=== PATIENT | male | born 1965 | race Hispanic/Latino ===

== ENCOUNTER 2016-09-14 17:51 | Emergency (ER) | payer MEDICAID ==
[2016-09-14 17:59] VITALS: BMI 22.4
[2016-09-14 18:04] VITALS: BP 106/78; PULSE 82; RESP 18; TEMP 97.2; O2SAT 97
--- NOTE | 2016-09-14 19:12 | ED PDOC ---
Arrival/HPI - General Chief Complaint: Back Pain Time Seen by Provider: 09/14/16 18:57 Historian: Patient - History of Present Illness Narrative History of Present Illness (Text): 09/14/16 19:08 Brandan Plascencia is a 51 year old male, who denies any past medical history, who presents to the ED complaining right sided back pain for 3 weeks. Patient states pain has been intermittent and started after he bent over trying to lunge after his dog. Patient states pain is worsened with movement. Patient denies any fever, chills, abdominal pain, cough, shortness of breath, nausea, vomiting, radiation of pain, urinary symptoms, or any other complaints. He took an OTC medicine without relief. Time/Duration: < month (3 weeks) Symptom Onset: Gradual Symptom Course: Intermittent Context: Home Past Medical History - Provider Review Nursing Documentation Reviewed: Yes - Infectious Disease Hx of Infectious Diseases: None - Tetanus Immunization Tetanus Immunization: Unknown - Past Medical History Past Medical History: No Previous - Psychiatric Hx Substance Use: No - Past Surgical History Past Surgical History: No Previous - Anesthesia Hx Anesthesia: No - Suicidal Assessment Feels Threatened In Home Enviroment: No Family/Social History - Physician Review Nursing Documentation Reviewed: Yes Family/Social History: No Known Family HX Smoking Status: Light Smoker < 10 Cigarettes Daily Hx Alcohol Use: No Hx Substance Use: No Allergies/Home Meds Allergies/Adverse Reactions: Allergies No Known Allergies Allergy (Verified 02/11/16 13:09) Review of Systems - Physician Review All systems were reviewed & negative as marked: Yes - Review of Systems Constitutional: Normal. absent: Fevers Respiratory: Normal. absent: SOB, Cough Cardiovascular: Normal Gastrointestinal: Normal. absent: Abdominal Pain, Diarrhea, Nausea, Vomiting Genitourinary Male: Normal. absent: Dysuria, Frequency, Hematuria, Urinary Output Changes Musculoskeletal: Back Pain (+right-sided back pain) Skin: Normal Physical Exam Vital Signs Reviewed: Yes Vital Signs Temp Pulse Resp BP Pulse Ox 09/14/16 17:51 97.2 F L 82 18 106/78 97 Temperature: Afebrile Blood Pressure: Normal Pulse: Regular Respiratory Rate: Normal Appearance: Positive for: Well-Appearing, Non-Toxic, Comfortable Pain Distress: None Mental Status: Positive for: Alert and Oriented X 3 - Systems Exam Head: Present: Atraumatic, Normocephalic Neck: Present: Normal Range of Motion Respiratory/Chest: Present: Clear to Auscultation, Good Air Exchange. No: Respiratory Distress, Accessory Muscle Use Cardiovascular: Present: Regular Rate and Rhythm, Normal S1, S2. No: Murmurs Abdomen: Present: Normal Bowel Sounds. No: Tenderness, Distention, Peritoneal Signs Back: Present: Paraspinal Tenderness (Tender to palpation in lateral right paralumbar area) Skin: Present: Warm, Dry, Normal Color. No: Rashes Psychiatric: Present: Alert, Oriented x 3, Normal Insight, Normal Concentration Medical Decision Making ED Course and Treatment: 09/14/16 19:08 Impression: 51 year old male complaining of intermittent right sided back pain for 3 weeks. Differential Diagnosis include but are not limited to: lumbar strain vs less likely renal stone vs pyelonephritis Plan: -- Urinalysis -- XR Lumbar Spine -- Toradol -- Tylenol -- Reassess and disposition Prior Visits: Notes and results from previous visits were reviewed. On 04/18/2016, pt was seen in the ED for right wrist pain. Pt was d/c home. Progress Notes: 09/14/16 19:42 Urine is negative with no UTI and much less likely renal colic with no RBCs and no urinary symptoms and history. Will treat for muscular strain/spasm. - Lab Interpretations Lab Results: Lab Results 09/14/16 19:10: Urine Color Light yellow, Urine Appearance Clear, Urine pH 6.0, Ur Specific [place] 1.010, Urine Protein Negative, Urine Glucose (UA) Negative, Urine Ketones Negative, Urine Blood Negative, Urine Nitrate Negative, Urine Bilirubin Negative, Urine Urobilinogen 0.2, Ur Leukocyte Esterase Negative - RAD Interpretation Radiology Orders: 09/14/16 19:06 LS SPINE WITH OBL > 18 YRS OLD [RAD] Stat - Medication Orders Current Medication Orders: Discontinued Medications Acetaminophen (Tylenol 325mg Tab) 975 mg PO STAT STA Stop: 09/14/16 19:09 Last Admin: 09/14/16 19:36 Dose: 975 MG MAR Pain/Vitals Document 09/14/16 19:36 RD (Rec: 09/14/16 19:36 RD [id number]) Pain Reassessment Is This A Pain ReAssessment? No Sleep Is patient sleeping during reassessment? No Presence of Pain Presence of Pain Yes Ketorolac Tromethamine (Toradol) 60 mg IM STAT STA Stop: 09/14/16 19:09 Last Admin: 09/14/16 19:36 Dose: 60 MG IM Administration Charges Document 09/14/16 19:36 RD (Rec: 09/14/16 19:36 RD [id number]) Injection Site MAR Injection Site Right Deltoid Charges for Administration # of IM Administrations 1 - Scribe Statement The provider has reviewed the documentation as recorded by the Adebayo Sarah Provider Attestation: All medical record entries made by the Scribgaby were at my direction and personally dictated by me. I have reviewed the chart and agree that the record accurately reflects my personal performance of the history, physical exam, medical decision making, and the department course for this patient. I have also personally directed, reviewed, and agree with the discharge instructions and disposition. Disposition/Present on Arrival - Present on Arrival Any Indicators Present on Arrival: No History of DVT/PE: No History of Uncontrolled Diabetes: No Urinary Catheter: No History of Decub. Ulcer: No History Surgical Site Infection Following: None - Disposition Have Diagnosis and Disposition been Completed?: Yes Diagnosis: Low back strain Disposition: HOME/ ROUTINE Disposition Time: 19:45 Patient Plan: Discharge Condition: GOOD Discharge Instructions (ExitCare): Acute Low Back Pain (ED) Additional Instructions: Avoid heavy lifting. Take the medications as prescribed. Follow up in the medical clinic. Return to the emergency department if any new concerning symptoms. Prescriptions: Baclofen [Lioresal] 1 cap PO TID PRN #20 tab PRN Reason: Pain, Moderate (4-7) Naproxen [Naprosyn] 500 mg PO BID PRN #30 tab PRN Reason: Pain Referrals: [facility] at [facility] [place] [Outside] - Follow up with primary
[2016-09-14 19:42] LABS: URINE APPEARANCE CLEAR (CLEAR); URINE BILIRUBIN NEGATIVE (NEGATIVE); URINE BLOOD NEGATIVE (NEGATIVE); URINE COLOR LIGHT YELLOW (YELLOW); URINE GLUCOSE (UA) NEGATIVE (NEGATIVE); URINE KETONE NEGATIVE (NEGATIVE); URINE LEUKOCYTE ESTERASE NEGATIVE Leu/uL (NEGATIVE); URINE PROTEIN NEGATIVE mg/dL (<30 mg/dL); URINE UROBILINOGEN 0.2 E.U./dL (<1 E.U./dL)
--- NOTE | 2016-09-15 09:31 | RAD ---
PROCEDURE: Radiographs of the Lumbar Spine. HISTORY: low back pain COMPARISON: No prior. FINDINGS: BONES: Normal alignment. No listhesis. No fracture. DISC SPACES: Unremarkable. OTHER FINDINGS: None. IMPRESSION: Unremarkable radiographs of the lumbar spine.
== END 2016-09-14 19:54 | disposition home or self-care (01) ==
LOC: ED 17:51
DX: S39.012A Strain of muscle, fascia and tendon of lower back, initial encounter (principal); X50.1XXA Overexertion from prolonged static or awkward postures, initial encounter; Y92.009 Unspecified place in unspecified non-institutional (private) residence as the place of occurrence of the external cause
CPT/HCPCS: 72110; 81003; 96372; 99282; J1885

== ENCOUNTER 2016-11-30 14:38 | Emergency (ER) | payer MEDICAID ==
[2016-11-30 14:52] VITALS: BMI 22.1
[2016-11-30 14:56] VITALS: BP 113/74; PULSE 65; RESP 19; TEMP 98.6; O2SAT 99
--- NOTE | 2016-11-30 15:18 | ED PDOC ---
Arrival/HPI - General Chief Complaint: Dental Pain Time Seen by Provider: 11/30/16 15:08 Historian: Patient - History of Present Illness Narrative History of Present Illness (Text): 11/30/16 15:21 51yr old male presents today with worsening upper gingival pain and swelling. pt states he has multiple teeth pulled by dentist and was sent home without any medications for pain. pt states he has been having increasing pain over the upper front gums. no fever/chills. states he took unknown pain mediation without improvement. no trismus or drooling. no headaches, dizziness. no other complaints. Time/Duration: > week (2 weeks) Symptom Onset: Gradual Symptom Course: Worsening Quality: Aching, Throbbing Severity Level: 7 Past Medical History - Provider Review Nursing Documentation Reviewed: Yes - Travel History Have you recently traveled outside [place] w/in the past 3 mons?: No - Infectious Disease Hx of Infectious Diseases: None - Tetanus Immunization Tetanus Immunization: Unknown - Past Medical History Past Medical History: No Previous - Psychiatric Hx Depression: No Hx Emotional Abuse: No Hx Physical Abuse: No Hx Substance Use: No - Past Surgical History Past Surgical History: No Previous - Surgical History Other/Comment: tooth extraction - Anesthesia Hx Anesthesia: Yes Hx Anesthesia Reactions: No - Suicidal Assessment Feels Threatened In Home Enviroment: No Family/Social History - Physician Review Nursing Documentation Reviewed: Yes Family/Social History: Unknown Family HX Smoking Status: Current Some Days Smoker Hx Alcohol Use: No Hx Substance Use: No Allergies/Home Meds Allergies/Adverse Reactions: Allergies No Known Allergies Allergy (Verified 11/30/16 14:52) Review of Systems - Review of Systems Constitutional: absent: Fatigue, Fevers ENT: Other (+ dental pain). absent: Sore Throat, Sinus Congestion Respiratory: absent: SOB, Cough Cardiovascular: absent: Chest Pain, Palpitations Gastrointestinal: absent: Abdominal Pain, Nausea, Vomiting Skin: absent: Rash, Pruritis Neurological: absent: Headache, Dizziness Physical Exam Vital Signs Reviewed: Yes Vital Signs Temp Pulse Resp BP Pulse Ox 11/30/16 14:54 98.6 F 65 19 113/74 99 Temperature: Afebrile Blood Pressure: Normal Pulse: Regular Respiratory Rate: Normal Appearance: Positive for: Well-Appearing, Non-Toxic, Comfortable Pain Distress: None Mental Status: Positive for: Alert and Oriented X 3 - Systems Exam Head: Present: Atraumatic Mouth: Present: Moist Mucous Membranes, Other (+ edema and tenderness to upper gingiva. no erythema. ). No: Drooling, Trismus, Normal Teeth Nose (Internal): Present: Normal Inspection Neck: Present: Normal Range of Motion Respiratory/Chest: Present: Clear to Auscultation, Good Air Exchange. No: Respiratory Distress, Accessory Muscle Use Cardiovascular: Present: Regular Rate and Rhythm, Normal S1, S2. No: Murmurs Neurological: Present: GCS=15 Skin: Present: Warm, Dry Psychiatric: Present: Alert, Oriented x 3 Medical Decision Making ED Course and Treatment: 11/30/16 15:24 Patient is nontoxic well-appearing in no distress with stable vital signs No trismus or drooling, moist mucous membranes Amoxicillin Toradol tramadol I advised follow-up with the dentist within the next 2 days. I advised immediate return is symptoms worsen persist or if new concerning symptoms develop Patient verbalizes understanding of discharge instructions and need for immediate followup. Impression: Toothache Motrin every 6 hours as needed for pain Amoxicillin 1 tablet 3 times daily x 10 days tramadol; 1 tablet every 6 hours as needed for moderate to severe pain; may cause drowsiness. Follow up with the primary care physician within the next 2 days. Follow-up with the dentist within the next 2 days Return immediately if symptoms worsen persist or if new concerning symptoms develop 11/30/16 15:29 Disposition/Present on Arrival - Present on Arrival Any Indicators Present on Arrival: No History of DVT/PE: No History of Uncontrolled Diabetes: No Urinary Catheter: No History of Decub. Ulcer: No History Surgical Site Infection Following: None - Disposition Have Diagnosis and Disposition been Completed?: Yes Diagnosis: Toothache Disposition: HOME/ ROUTINE Disposition Time: 15:18 Patient Plan: Discharge Condition: GOOD Discharge Instructions (ExitCare): Toothache (ED) Additional Instructions: Motrin every 6 hours as needed for pain Amoxicillin 1 tablet 3 times daily x 10 days tramadol; 1 tablet every 6 hours as needed for moderate to severe pain; may cause drowsiness. Follow up with the primary care physician within the next 2 days. Follow-up with the dentist within the next 2 days Return immediately if symptoms worsen persist or if new concerning symptoms develop Prescriptions: Amoxicillin 500 mg PO TID #30 tab Ibuprofen [Motrin] 600 mg PO Q6H PRN #20 tab PRN Reason: pain/fever reduction traMADol [Ultram] 50 mg PO Q6H PRN #10 tab PRN Reason: moderate to severe pain Referrals: Jose Sam DMD [Non-Staff] - Follow up with primary Rick Rubin MD [Staff Provider] - Follow up with primary Forms: WORK NOTE
== END 2016-11-30 16:00 | disposition home or self-care (01) ==
LOC: ED 14:38
DX: K08.89 Other specified disorders of teeth and supporting structures (principal); Z72.0 Tobacco use
CPT/HCPCS: 96372; 99282; J1885

== ENCOUNTER 2017-07-16 23:04 | Emergency (ER) | payer MEDICAID ==
[2017-07-16 23:05] VITALS: BMI 23.3
[2017-07-16 23:14] VITALS: TEMP 98.2
[2017-07-16] MEDS ORDERED: Sodium Chloride 0.9% 1,000 ML IV STA (23:17)
[2017-07-16 23:40] LABS: BASO # 0.04 K/mm3 (0.0-2.0); BASO % 0.3 % (0.0-3.0); EOS # 0.4 (0.0-0.7); EOS % 3.6 % (1.5-5.0); GRAN # 7.92 (1.4-6.5); GRAN % 67.1 % (50.0-68.0); LYMPH # 2.7 (1.2-3.4); LYMPH % 23.2 % (22.0-35.0); MEAN CELL VOLUME 89.9 fl (80.0-105.0); MEAN CORPUSCULAR HEMOGLOBIN 30.4 pg (25.0-35.0); MEAN CORPUSCULAR HGB CONC 33.9 g/dl (31.0-37.0); MEAN PLATELET VOLUME 10.2 fl (7.0-11.0); MONO # 0.7 (0.1-0.6); MONO % 5.8 % (1.0-6.0); RBC 4.93 10^6/uL (3.5-6.1); WHITE BLOOD COUNT 11.8 10^3/ul (4.5-11.0)
[2017-07-16 23:44] LABS: ALB/GLOB RATIO 1.4 (1.1-1.8); ALT/SGPT 25 U/L (7-56); AST/SGOT 22 U/L (17-59); BLOOD UREA NITROGEN 9 mg/dL (7-21); CALCIUM 9.1 mg/dL (8.4-10.5); GFR AFRICAN-AMERICAN > 60; GFR NON-AFRICAN AMERICAN > 60; INR 0.98 (0.93-1.08); MAGNESIUM 2.1 mg/dL (1.7-2.2); PROTHROMBIN TIME 11.2 SECONDS (9.4-12.5)
[2017-07-16 23:45] LABS: PARTIAL THROMBOPLASTIN TIME 26.6 Seconds (25.1-36.5)
[2017-07-16 23:55] LABS: TROPONIN I < 0.01 ng/mL
[2017-07-17 00:24] VITALS: BP 124/69; PULSE 77; RESP 16; O2SAT 100
--- NOTE | 2017-07-17 00:26 | ED PDOC ---
Arrival/HPI - General Chief Complaint: Syncope Time Seen by Provider: 07/16/17 23:16 Historian: Patient, Family (Niece) - History of Present Illness Narrative History of Present Illness (Text): 07/17/17 01:01 A 52 year old male, with no significant past medical history, is brought in via EMS to the emergency department complaining of a syncopal episode. As per the patient 's niece, she states that the patient went to open the door when he suddenly became dizzy and syncopized. The patient states that he felt weakness in the knees, "gently" fell to the ground and hit his head on the ground. As per the niece, the episode lasted for about 3 seconds. The patient denies any previous history, fevers, chills, chest pain, shortness of breath, dyspnea on exertion, cough, abdominal pain, nausea, vomiting, diarrhea, back pain, neck pain, urinary/bowel changes, or any other complaint. PMD: Dr. Mayen Time/Duration: Prior to Arrival Symptom Onset: Sudden Symptom Course: Unchanged Activities at Onset: Rest, Light Context: Home Past Medical History - Provider Review Nursing Documentation Reviewed: Yes - Infectious Disease Hx of Infectious Diseases: None - Tetanus Immunization Tetanus Immunization: Unknown - Past Medical History Past Medical History: No Previous - Psychiatric Hx Depression: No Hx Emotional Abuse: No Hx Physical Abuse: No Hx Substance Use: No - Past Surgical History Past Surgical History: No Previous - Surgical History Other/Comment: tooth extraction - Anesthesia Hx Anesthesia: Yes Hx Anesthesia Reactions: No - Suicidal Assessment Feels Threatened In Home Enviroment: No Family/Social History - Physician Review Nursing Documentation Reviewed: Yes Family/Social History: No Known Family HX Smoking Status: Current Some Days Smoker Hx Alcohol Use: Yes Hx Substance Use: No Allergies/Home Meds Allergies/Adverse Reactions: Allergies No Known Allergies Allergy (Verified 11/30/16 14:52) Review of Systems - Physician Review All systems were reviewed & negative as marked: Yes - Review of Systems Constitutional: absent: Fevers, Night Sweats Respiratory: absent: SOB, Cough Cardiovascular: Syncope. absent: Chest Pain, [place] Gastrointestinal: absent: Abdominal Pain, Stool Changes, Diarrhea, Nausea, Vomiting Genitourinary Male: absent: Urinary Output Changes Musculoskeletal: absent: Back Pain, Neck Pain Neurological: Dizziness Physical Exam Vital Signs Reviewed: Yes Vital Signs Temp Pulse Resp BP Pulse Ox 07/17/17 00:23 77 16 124/69 100 07/16/17 23:08 98.2 F 78 18 143/81 99 Temperature: Afebrile Blood Pressure: Normal Pulse: Regular Respiratory Rate: Normal Appearance: Positive for: Well-Appearing, Non-Toxic, Comfortable Pain Distress: None Mental Status: Positive for: Alert and Oriented X 3 - Systems Exam Head: Present: Atraumatic, Normocephalic Pupils: Present: PERRL Extroacular Muscles: Present: EOMI Conjunctiva: Present: Normal Mouth: Present: Moist Mucous Membranes Neck: Present: Normal Range of Motion Respiratory/Chest: Present: Clear to Auscultation, Good Air Exchange. No: Respiratory Distress, Accessory Muscle Use Cardiovascular: Present: Regular Rate and Rhythm, Normal S1, S2. No: Murmurs Abdomen: Present: Normal Bowel Sounds. No: Tenderness, Distention, Peritoneal Signs Back: Present: Normal Inspection Upper Extremity: Present: Normal Inspection. No: Cyanosis, Edema Lower Extremity: Present: Normal Inspection. No: Edema Neurological: Present: GCS=15, CN II-XII Intact, Speech Normal, Motor Func Grossly Intact, Normal Sensory Function, Normal Cerebellar Funct, Norm Deep Tendon Reflexes, Gait Normal, Memory Normal, Normal 2Pt Descrimination, Other ( No focal neurological deficit) Skin: Present: Warm, Dry, Normal Color. No: Rashes Psychiatric: Present: Alert, Oriented x 3, Normal Insight, Normal Concentration Medical Decision Making ED Course and Treatment: 07/17/17 01:06 Impression: A 52 year old male presents to the emergency department s/p a syncopal episode. Plan: -- Head CT -- Urinalysis -- IV Fluids -- Labs -- Reassess and disposition Progress Notes: EKG NSR @ 68bpm Head CT IMPRESSION: 1. No acute intracranial hemorrhage or acute territorial type infarct. 2. There is a small nonspecific hypodense focus within the right frontal subcortical white matter and series 2 image 23. Differential considerations include small vessel ischemic disease and demyelination. This can be further evaluated with a nonemergent MRI. 3. There is slight atrophy of the frontal sulci. 4. Paranasal sinus disease is noted above. 07/17/17 01:08: Results were discussed with the patient. The patient was offered admission to rule out any cardiogenic/neurogenic causes for his syncopal episode. The patient, however, declined admission stating that his symptoms have improved and will follow up with his PMD. Leaving Against Medical Advice (AMA): The patient is choosing to leave against medical advice. I have personally explained to the patient that choosing to do so may result in permanent bodily harm or . I have discussed at great length that without further evaluation and monitoring there may be unforeseen circumstances and/or deterioration causing permanent bodily harm or as a result of their choice. The patient is alert, oriented, and shows the mental capacity to make clear decisions regarding the patients health care at this time. The patient continues to wish to leave against medical advice. In light of the patients decision to leave against medical advice, follow-up has been arranged and the patient is aware of the importance to following up as instructed. The patient has been advised that they should return to the emergency room immediately if they change their mind at any time, or if their condition begins to change or worsen in any way.> - Lab Interpretations Lab Results: 07/16/17 23:15 07/16/17 23:15 Lab Results 07/16/17 23:24: Influenza Typ A,B (EIA) Negative for flu a/b 07/16/17 23:15: Sodium 137, Potassium 3.4 L, Chloride 100, Carbon Dioxide 26, Anion Gap 14, BUN 9, Creatinine 0.9, Est GFR ( Amer) > 60, Est GFR (Non- Af Amer) > 60, Random Glucose 173 H, Calcium 9.1, Magnesium 2.1, Total Bilirubin 0.5, AST 22, ALT 25, Alkaline Phosphatase 78, Lactate Dehydrogenase 453, Total Creatine Kinase 140, Troponin I < 0.01, Total Protein 6.9, Albumin 4.0, Globulin 2.9, Albumin/Globulin Ratio 1.4 07/16/17 23:15: PT 11.2, INR 0.98, APTT 26.6 07/16/17 23:15: WBC 11.8 H, RBC 4.93, Hgb 15.0, Hct 44.3, MCV 89.9, MCH 30.4, MCHC 33.9, RDW 13.0, Plt Count 245, MPV 10.2, Gran % 67.1, Lymph % (Auto) 23.2, [place] % (Auto) 5.8, Eos % (Auto) 3.6, Baso % (Auto) 0.3, Gran # 7.92 H, Lymph # ( Auto) 2.7, [place] # (Auto) 0.7 H, Eos # (Auto) 0.4, Baso # (Auto) 0.04 I have reviewed the lab results: Yes - RAD Interpretation Radiology Orders: 07/16/17 23:59 HEAD W/O CONTRAST [CT] Stat - Medication Orders Current Medication Orders: Discontinued Medications Sodium Chloride (Sodium Chloride 0.9%) 1,000 mls @ 999 mls/hr IV .Q1H1M STA Stop: 07/17/17 00:17 Last Admin: 07/16/17 23:28 Dose: 999 mls/hr eMAR Start Stop Document 07/16/17 23:28 RD (Rec: 07/16/17 23:28 RD [id number]) Intravenous Solution Start Date 07/16/17 Start Time 23:28 - Scribe Statement The provider has reviewed the documentation as recorded by the Lolisibe Karmen Romo Provider Scribe Attestation: All medical record entries made by the Scribe were at my direction and personally dictated by me. I have reviewed the chart and agree that the record accurately reflects my personal performance of the history, physical exam, medical decision making, and the department course for this patient. I have also personally directed, reviewed, and agree with the discharge instructions and disposition. Disposition/Present on Arrival - Present on Arrival Any Indicators Present on Arrival: No History of DVT/PE: No History of Uncontrolled Diabetes: No Urinary Catheter: No History of Decub. Ulcer: No History Surgical Site Infection Following: None - Disposition Have Diagnosis and Disposition been Completed?: Yes Diagnosis: Syncopal episodes Disposition: AGAINST MEDICAL ADVICE Disposition Time: 00:55 Condition: FAIR Discharge Instructions (ExitCare): Syncope (ED) Forms: Jaree (Sudanese)
--- NOTE | 2017-07-17 00:45 | CT ---
EXAM: CT Head Without Intravenous Contrast EXAM DATE/TIME: 07/16/2017 11:59 PM CLINICAL HISTORY: The patient age is 52 years old and is male; Signs and symptoms; Syncope and collapse Facility exam id and description: Ct heads head w/o contrast TECHNIQUE: Axial computed tomography images of the head/brain without intravenous contrast. All CT scans at this facility use one or more dose reduction techniques, viz.: automated exposure control; ma/kV adjustment per patient size (including targeted exams where dose is matched to indication; i.e. head); or iterative reconstruction technique. Coronal and sagittal reformatted images were created and reviewed. COMPARISON: No relevant prior studies available. FINDINGS: Brain: There is a small nonspecific hypodense focus within the right frontal subcortical white matter and series 2 image 23. Differential considerations include small vessel ischemic disease and accommodation. There is slight atrophy of the frontal sulci. The white-bess differentiation is preserved demonstrating no acute territorial type infarct. No acute intracranial hemorrhage is seen. Midline shift: There is no midline shift. Ventricles: No ventriculomegaly. Bones/joints: The calvarium demonstrates no evidence for a depressed fracture. Soft tissues: No acute abnormality. Sinuses: Mucous retention cysts or polyps are identified within the left maxillary sinus and right sphenoid sinus. There is polypoid mucosal thickening of the left maxillary sinus. Mucosal thickening is also visualized of the right frontal sinus and anterior ethmoid air cells. Mastoid air cells: No mastoid effusion. IMPRESSION: 1. No acute intracranial hemorrhage or acute territorial type infarct. 2. There is a small nonspecific hypodense focus within the right frontal subcortical white matter and series 2 image 23. Differential considerations include small vessel ischemic disease and demyelination. This can be further evaluated with a nonemergent MRI. 3. There is slight atrophy of the frontal sulci. 4. Paranasal sinus disease is noted above.
== END 2017-07-17 01:00 | disposition left against medical advice (07) ==
LOC: ED 23:04
DX: R55 Syncope and collapse (principal)
CPT/HCPCS: 70450; 80053; 82550; 82948; 83615; 83735; 84484; 85025; 85610; 85730; 87804; 99285; J7040